=== PATIENT | female | born 1955 | race Hispanic/Latino ===

== ENCOUNTER 2021-10-12 18:23 | Emergency (ER) | payer OTHER ==
[~2021-10-12] VITALS: Ht 152.4 cm; Wt 102.1 kg
[2021-10-12 18:26] VITALS: BP 170/97
[2021-10-12 21:24] LABS: BASOPHILS % (AUTO) 0.8 % (0.0-5.0); EOSINOPHILS % (AUTO) 2.2 % (0.0-8.0); HEMATOCRIT 37.6 % (36-48); LYMPHOCYTES % (AUTO) 28.3 % (21.0-51.0); MEAN CORPUSCULAR HEMOGLOBIN 26.7 pg (27.0-33.0); MEAN CORPUSCULAR HGB CONC 30.1 g/dL (32.0-36.0); MEAN CORPUSCULAR VOLUME 88.7 fL (79-99); PLATELET COUNT (AUTO) 380 K/uL (130-400); RED BLOOD CELL COUNT(AUTO) 4.24 MIL/uL (4.00-5.50); RED CELL DISTRIBUTION WIDTH 14.3 % (11.0-15.5); WHITE BLOOD COUNT (AUTO) 9.8 K/uL (4.8-10.8)
[2021-10-12 21:35] LABS: CREATININE 0.7 mg/dL (0.5-1.5); POTASSIUM 3.4 mmol/L (3.5-5.1)
[2021-10-12 21:40] LABS: ALBUMIN 3.1 g/dL (3.5-5.0); BILIRUBIN,TOTAL 0.2 mg/dL (0.2-1.0); TOTAL PROTEIN, SERUM 7.1 g/dL (6.0-8.3)
[2021-10-12] MEDS ORDERED: IOHEXOL 350 MG/ML 100ML INFUS..BTL IV ONE (21:47)
[2021-10-12 21:50] LABS: B-TYPE NATRIURETIC PEPTIDE 21 pg/mL (0-100)
[2021-10-12] MEDS ORDERED: FURO-152 PO (22:26)
[2021-10-12] MEDS ORDERED: FUROSEMIDE 20 MG TABLET PO ONE (22:30)
== END 2021-10-12 22:43 | disposition home or self-care (01) ==
LOC: EDH 18:23
DX: R60.0 Localized edema (principal); E78.00 Pure hypercholesterolemia, unspecified; R06.02 Shortness of breath
CPT/HCPCS: 36415; 71045; 74177; 80053; 83880; 84484; 85025; 93005; 93970; 99285; Q9967